=== PATIENT | male | born 1930 | race Two or more races ===

== ENCOUNTER 2018-05-14 21:33 | Inpatient (IN) | payer MEDICARE, OTHER ==
[~2018-05-14] VITALS: Ht 165.1 cm; Wt 48.6 kg
[2018-05-14 22:37] LABS: Hematocrit 30.8 % (41.0-53.0); Mean Corpuscular Hgb Conc. 32.3 g/dL (32.0-36.0); Mean Corpuscular Volume 83.7 fL (80.0-100.0); Platelet Count (auto) 307 10^3/uL (140-450); Red Blood Cells 3.68 10^6/uL (4.5-5.90); Red Cell Distribution Width 16.1 % (11.8-14.3)
[2018-05-14 22:46] LABS: White Blood Cell 31.9 10^3/uL (4.4-10.8)
[2018-05-14 22:48] LABS: Band Neutrophils % (manual) 0; Basophils % (manual) 0 (0.0-2.0); Blast Cells 0; Eosinophils % (manual) 0 (0-7); Metamyelocytes % 0; Myelocytes % 0; Promyelocytes % 0; Reactive Lymphocytes 0
[2018-05-14 22:50] LABS: Albumin 2.9 g/dL (3.4-5.0); Calcium 8.2 mg/dL (8.5-10.1); Magnesium 2.5 mg/dL (1.6-2.6); Potassium 4.6 mmol/L (3.5-5.1)
[2018-05-14 22:53] LABS: Lymphocytes % (manual) 4 (10.0-50.0); Monocytes % (manual) 4 (0-12)
[2018-05-14 22:56] LABS: Bilirubin, Total 0.4 mg/dL (0.2-1.0); Total Protein 8.3 g/dL (6.4-8.2)
[2018-05-14] MEDS ORDERED: LEVOFLOXACIN 500MG 100 ML IV ONE (23:00)
[2018-05-14] MEDS ORDERED: cefTRIAXone 1GM/10ml IVPUSH 10 ML IV ONE (23:00)
[2018-05-14] MEDS ORDERED: SODIUM CHLORIDE 0.9% 1,500 ML IV ONE (23:00)
[2018-05-14 23:16] LABS: INR 1.09 (0.9-1.15); Partial Thromboplastin Time 32.9 sec (23.78-33.04); Prothrombin Time 11.6 sec (9.27-12.13)
[2018-05-14 23:32] LABS: Urine Bacteria MANY /hpf (None Seen); Urine Blood 3+ /uL (Negative); Urine Specific Gravity 1.017 (1.001-1.035); Urine WBC 1026 /hpf (0 - 3); Urine WBC Clumps PRESENT /hpf (None Seen)
[2018-05-15] MEDS ORDERED: TAMS0.4C36 PO (03:01)
[2018-05-15] MEDS ORDERED: AMLO5TAB13 PO (03:01)
[2018-05-15] MEDS ORDERED: LEVEMIR SC (03:01)
[2018-05-15] MEDS ORDERED: LOSA25TA40 PO (03:01)
[2018-05-15] MEDS: SODIUM CHLORIDE 0.9% 1,000 ML IV SCH ×2 (03:45→15:08)
[2018-05-15] MEDS ORDERED: MORPHINE SULFATE 4 MG/ML SYR/VIAL IV PRN (03:45)
[2018-05-15] MEDS ORDERED: ONDANSETRON HCL 4 MG/2 ML VIAL IV PRN (03:45)
[2018-05-15] MEDS ORDERED: TEMAZEPAM 15 MG CAP PO PRN (03:45)
[2018-05-15] MEDS ORDERED: ACETAMINOPHEN 325 MG TAB PO PRN (03:45)
[2018-05-15] MEDS ORDERED: SODIUM CHLORIDE 0.9% 500 ML IV ONE (03:45)
[2018-05-15] MEDS ORDERED: NITROGLYCERIN 0.4 MG SL TAB SL PRN (03:45)
[2018-05-15] MEDS ORDERED: DEXTROSE (50%) 50ML SYRG IV PRN (05:15)
[2018-05-15 05:30] VITALS: BP 124/65
[2018-05-15] MEDS: InsuLIN REG 1unit/0.01ml Soln (100units/ml) SC SCH ×3 (06:00→17:52)
[2018-05-15] MEDS: ACCU-CHEK COMFORT CURVE STRIP VI SCH ×3 (06:00→17:52)
[2018-05-15 09:00] VITALS: BP 103/51
[2018-05-15] MEDS: PANTOPRAZOLE 40 MG TAB PO SCH (10:06)
[2018-05-15] MEDS: amLODIPine BESYLATE 5 MG TAB PO SCH (10:07)
[2018-05-15] MEDS: LOSARTAN POTASSIUM 25 MG TAB PO SCH (10:07)
[2018-05-15 13:00] VITALS: BP 126/65
[2018-05-15 17:00] VITALS: BP 108/65
[2018-05-15] MEDS: TAMSULOSIN HYDROCHLORIDE 0.4 MG CAP PO SCH (17:53)
[2018-05-15] MEDS ORDERED: INFLUENZA QUAD 2018-2019 0.5 ML SYRG IM ONE (19:00)
[2018-05-15] MEDS ORDERED: PNEUMOCOCCAL VACC POLYS 25 MCG/0.5 ML VIAL IM ONE (19:00)
[2018-05-15 20:00] VITALS: BP 122/67
[2018-05-15 21:08] VITALS: BP 122/67
[2018-05-15] MEDS: LEVOFLOXACIN 250MG 50 ML IV SCH (22:14)
[2018-05-16] MEDS: SODIUM CHLORIDE 0.9% 1,000 ML IV SCH ×2 (01:59→11:08)
[2018-05-16 05:12] VITALS: BP 117/62
[2018-05-16] MEDS: ACCU-CHEK COMFORT CURVE STRIP VI SCH ×4 (06:00→17:48)
[2018-05-16] MEDS: InsuLIN REG 1unit/0.01ml Soln (100units/ml) SC SCH ×4 (06:00→17:48)
[2018-05-16 06:39] LABS: Basophils # (auto) 0 uL; Hemoglobin 8.4 g/dL (13.5-17.5); Mean Corpuscular Hemoglobin 28.3 pg (28.0-32.0); Red Blood Cells 2.96 10^6/uL (4.5-5.90)
[2018-05-16 06:43] LABS: Eosinophils # (auto) 0 uL; Hematocrit 24.8 % (41.0-53.0); Lymphocytes # (auto) 4.4 uL; Mean Corpuscular Hgb Conc. 33.8 g/dL (32.0-36.0); Mean Corpuscular Volume 83.7 fL (80.0-100.0); Monocytes # (auto) 1.6 uL; Neutrophils # (auto) 4.9 uL; Platelet Count (auto) 176 10^3/uL (140-450); Red Cell Distribution Width 16.7 % (11.8-14.3)
[2018-05-16 06:51] LABS: Potassium 4.1 mmol/L (3.5-5.1)
[2018-05-16 06:59] LABS: BUN/Creatinine Ratio 24.6; Bilirubin, Total 0.3 mg/dL (0.2-1.0); Calcium 7.8 mg/dL (8.5-10.1); Total Protein 6.3 g/dL (6.4-8.2)
[2018-05-16 09:09] VITALS: BP 113/57
[2018-05-16] MEDS: LOSARTAN POTASSIUM 25 MG TAB PO SCH (11:07)
[2018-05-16] MEDS: PANTOPRAZOLE 40 MG TAB PO SCH (11:07)
[2018-05-16] MEDS: amLODIPine BESYLATE 5 MG TAB PO SCH (11:08)
[2018-05-16 13:00] VITALS: BP 130/64
[2018-05-16 16:37] VITALS: BP 117/70
[2018-05-16] MEDS: Pro-Stat SF 30ml Vanilla PO SCH (17:48)
[2018-05-16] MEDS: TAMSULOSIN HYDROCHLORIDE 0.4 MG CAP PO SCH (17:59)
[2018-05-16] MEDS: GLYTROL 1,000 ML BTL PO SCH (18:00)
[2018-05-16 22:00] VITALS: BP 128/71
[2018-05-16] MEDS: ASCORBIC ACID 500 MG TAB PO SCH (22:28)
[2018-05-16] MEDS: LEVOFLOXACIN 250MG 50 ML IV SCH (22:28)
[2018-05-16] MEDS ORDERED: VANCOMYCIN PER PHARMACY 0 MG IV SCH (23:00)
[2018-05-17] MEDS ORDERED: VANCOMYCIN 1GM/250ML 250 ML IV ONE
[2018-05-17] MEDS: InsuLIN REG 1unit/0.01ml Soln (100units/ml) SC SCH ×4 (00:14→21:18)
[2018-05-17] MEDS: ACCU-CHEK COMFORT CURVE STRIP VI SCH ×4 (00:14→21:18)
[2018-05-17] MEDS: SODIUM CHLORIDE 0.9% 1,000 ML IV SCH ×3 (00:19→21:28)
[2018-05-17 05:00] VITALS: BP 110/61
[2018-05-17 07:50] LABS: Basophils # (auto) 0 uL; Eosinophils # (auto) 0.2 uL; Eosinophils % (auto) 2.4 % (0.0-7.0); Monocytes # (auto) 0.5 uL; Red Cell Distribution Width 16.5 % (11.8-14.3)
[2018-05-17] MEDS: HYDROcodone-ACET 5/325MG TAB PO PRN ×2 (07:50→12:20)
[2018-05-17 07:53] LABS: Basophils % (auto) 0.3 % (0.0-2.0); Hematocrit 24.8 % (41.0-53.0); Hemoglobin 8.3 g/dL (13.5-17.5); Lymphocytes # (auto) 1.1 uL; Lymphocytes % (auto) 13.2 % (10.0-50.0); Mean Corpuscular Hemoglobin 27.8 pg (28.0-32.0); Mean Corpuscular Hgb Conc. 33.7 g/dL (32.0-36.0); Mean Corpuscular Volume 82.6 fL (80.0-100.0); Monocytes % (auto) 5.6 % (0.0-12.0); Neutrophils # (auto) 6.4 uL; Neutrophils % (auto) 78.5 % (37.0-80.0); Nucleated Red Blood Cells % 0.1 %; Platelet Count (auto) 193 10^3/uL (140-450); White Blood Cell 8.2 10^3/uL (4.4-10.8)
[2018-05-17] MEDS: HYDROmorphone HCL 2 MG/ML VL IV PRN ×5 (08:00→18:45)
[2018-05-17] MEDS: Pro-Stat SF 30ml Vanilla PO SCH ×2 (08:00→21:18)
[2018-05-17 08:09] LABS: Calcium 7.8 mg/dL (8.5-10.1); Potassium 4.2 mmol/L (3.5-5.1)
[2018-05-17 08:11] LABS: BUN/Creatinine Ratio 17.5; Bilirubin, Total 0.3 mg/dL (0.2-1.0); Total Protein 6.3 g/dL (6.4-8.2)
[2018-05-17 09:00] VITALS: BP 117/68
[2018-05-17] MEDS: LOSARTAN POTASSIUM 25 MG TAB PO SCH (09:32)
[2018-05-17] MEDS: MULTIPLE VITAMINS W/ MINERALS TAB PO SCH (09:32)
[2018-05-17] MEDS: amLODIPine BESYLATE 5 MG TAB PO SCH (09:32)
[2018-05-17] MEDS: ASCORBIC ACID 500 MG TAB PO SCH ×2 (09:32→21:27)
[2018-05-17] MEDS: PANTOPRAZOLE 40 MG TAB PO SCH (09:32)
[2018-05-17 13:00] VITALS: BP 123/71
[2018-05-17 17:00] VITALS: BP 135/69
[2018-05-17] MEDS: GLYTROL 1,000 ML BTL PO SCH (21:18)
[2018-05-17] MEDS: TAMSULOSIN HYDROCHLORIDE 0.4 MG CAP PO SCH (21:18)
[2018-05-17] MEDS: LEVOFLOXACIN 250MG 50 ML IV SCH (21:27)
[2018-05-17 22:00] VITALS: BP 138/91
[2018-05-18] MEDS: ACCU-CHEK COMFORT CURVE STRIP VI SCH ×3 (00:32→12:00)
[2018-05-18] MEDS ORDERED: VANCOMYCIN 750 MG in D5W 5% 250 ML IV SCH (01:00)
[2018-05-18 05:00] VITALS: BP 114/62
[2018-05-18] MEDS: InsuLIN REG 1unit/0.01ml Soln (100units/ml) SC SCH ×3 (06:00→12:00)
[2018-05-18 07:08] LABS: Basophils # (auto) 0.1 uL; Basophils % (auto) 0.7 % (0.0-2.0); Eosinophils # (auto) 0.3 uL; Eosinophils % (auto) 3.7 % (0.0-7.0); Hematocrit 26.7 % (41.0-53.0); Hemoglobin 8.9 g/dL (13.5-17.5); Lymphocytes # (auto) 1.7 uL; Lymphocytes % (auto) 22.8 % (10.0-50.0); Mean Corpuscular Hemoglobin 27.5 pg (28.0-32.0); Mean Corpuscular Hgb Conc. 33.4 g/dL (32.0-36.0); Mean Corpuscular Volume 82.5 fL (80.0-100.0); Monocytes # (auto) 0.5 uL; Monocytes % (auto) 6.5 % (0.0-12.0); Neutrophils % (auto) 66.3 % (37.0-80.0); Platelet Count (auto) 208 10^3/uL (140-450); Red Blood Cells 3.24 10^6/uL (4.5-5.90); Red Cell Distribution Width 16.5 % (11.8-14.3); White Blood Cell 7.5 10^3/uL (4.4-10.8)
[2018-05-18] MEDS: HYDROmorphone HCL 2 MG/ML VL IV PRN ×3 (07:10→12:52)
[2018-05-18 07:32] LABS: Potassium 3.9 mmol/L (3.5-5.1)
[2018-05-18 07:40] LABS: Albumin 2.2 g/dL (3.4-5.0); BUN/Creatinine Ratio 18.1; Bilirubin, Total 0.3 mg/dL (0.2-1.0); Calcium 8.2 mg/dL (8.5-10.1); Total Protein 6.9 g/dL (6.4-8.2)
[2018-05-18] MEDS: GLYTROL 1,000 ML BTL PO SCH (08:00)
[2018-05-18] MEDS: Pro-Stat SF 30ml Vanilla PO SCH (08:00)
[2018-05-18 09:00] VITALS: BP 104/61
[2018-05-18] MEDS: SODIUM CHLORIDE 0.9% 1,000 ML IV SCH (09:34)
[2018-05-18] MEDS: ASCORBIC ACID 500 MG TAB PO SCH (09:51)
[2018-05-18] MEDS: MULTIPLE VITAMINS W/ MINERALS TAB PO SCH (09:51)
[2018-05-18] MEDS: amLODIPine BESYLATE 5 MG TAB PO SCH (09:52)
[2018-05-18] MEDS: PANTOPRAZOLE 40 MG TAB PO SCH (09:52)
[2018-05-18] MEDS: LOSARTAN POTASSIUM 25 MG TAB PO SCH (10:00)
[2018-05-18] MEDS ORDERED: Glucerna Carbsteady SHAKE Stawberry 8oz PO SCH (12:00)
[2018-05-18 12:33] VITALS: BP 104/61
== END 2018-05-18 13:00 | DRG 871 ==
LOC: ER 21:45 → TELE 21:46 → TELE-EAST 05-15 05:05
PROVIDERS: ADMIT Nurse Practitioner; ATTEND Family Medicine
DX: A41.9 Sepsis, unspecified organism (principal); G93.41 Metabolic encephalopathy; N17.9 Acute kidney failure, unspecified; N13.6 Pyonephrosis; N18.3 Chronic kidney disease, stage 3 (moderate); I12.9 Hypertensive chronic kidney disease with stage 1 through stage 4 chronic kidney disease, or unspecified chronic kidney disease; E11.22 Type 2 diabetes mellitus with diabetic chronic kidney disease; B96.20 Unspecified Escherichia coli [E. coli] as the cause of diseases classified elsewhere; E86.0 Dehydration; F02.80 Dementia in other diseases classified elsewhere, unspecified severity, without behavioral disturbance, psychotic disturbance, mood disturbance, and anxiety; N40.0 Benign prostatic hyperplasia without lower urinary tract symptoms; Z23 Encounter for immunization
CPT/HCPCS: 36415; 51702; 70450; 71045; 74176; 78582; 80053; 81001; 82962; 83605; 83735; 84484; 85007; 85025; 85027; 85379; 85610; 85730; 87040; 87076; 87086; 87088; 87186; 90674; 93005; 93970; 96365; 96375; J0696; J1815; J1956; J7060

== ENCOUNTER 2018-10-12 13:03 | Inpatient (IN) | payer MEDICARE, OTHER ==
[~2018-10-12] VITALS: Ht 160 cm; Wt 55.2 kg
[~2018-10-12 13:03] MED LIST: AMLO5TAB13 PO; LEVEMIR SC; LOSA25TA40 PO; TAMS0.4C36 PO
[2018-10-12] MEDS ORDERED: PANTOPRAZOLE 40 MG/10 ML VIAL IV STA (14:38)
[2018-10-12] MEDS ORDERED: BENZOCAINE (DENTAL) 20 % SPRAY 60ML MT ONE (14:52)
[2018-10-12 15:15] LABS: INR 1.07 (0.9-1.15); Partial Thromboplastin Time 32.8 sec (23.78-33.04); Prothrombin Time 11.4 sec (9.27-12.13)
[2018-10-12 15:17] LABS: Magnesium 2.6 mg/dL (1.6-2.6)
[2018-10-12 15:18] LABS: Albumin 2.7 g/dL (3.4-5.0); Calcium 8.8 mg/dL (8.5-10.1)
[2018-10-12 15:19] LABS: Lactic Acid w/Reflex 5.9 mmol/L (0.4-2.0)
[2018-10-12 15:21] LABS: Bilirubin, Total 0.4 mg/dL (0.2-1.0); Total Protein 7.6 g/dL (6.4-8.2)
[2018-10-12 15:39] LABS: Hematocrit 27.2 % (41.0-53.0); Hemoglobin 8.8 g/dL (13.5-17.5); Mean Corpuscular Hemoglobin 28.3 pg (28.0-32.0); Mean Corpuscular Hgb Conc. 32.6 g/dL (32.0-36.0); Mean Corpuscular Volume 87.1 fL (80.0-100.0); Platelet Count (auto) 400 10^3/uL (140-450); Red Blood Cells 3.12 10^6/uL (4.5-5.90); Red Cell Distribution Width 17.7 % (11.8-14.3); White Blood Cell 25.2 10^3/uL (4.4-10.8)
[2018-10-12 15:46] LABS: Amylase 248 U/L (25-115); Lipase 135 U/L (73-393)
[2018-10-12 15:53] LABS: Basophils % (manual) 0 (0.0-2.0); Blast Cells 0; Eosinophils % (manual) 0 (0-7); Metamyelocytes % 0; Myelocytes % 0; Promyelocytes % 0; Reactive Lymphocytes 0
[2018-10-12] MEDS ORDERED: PANTOPRAZOLE 80 MG in SODIUM CHL 0.9% 60 ML IV ONE (16:15)
[2018-10-12] MEDS ORDERED: cefTRIAXone 1GM/50ML D5W 50 ML IV ONE (16:15)
[2018-10-12] MEDS ORDERED: SODIUM CHLORIDE 0.9% 1,500 ML IV ONE (16:15)
[2018-10-12 17:05] LABS: Urine Amorphous Crystal MOD /hpf (None Seen); Urine Bacteria MANY /hpf (None Seen); Urine Mucus FEW (None Seen); Urine WBC 202 /hpf (0 - 3)
[2018-10-12 17:15] LABS: Urine Specific Gravity 1.005 (1.001-1.035)
[2018-10-12 17:16] LABS: Urine Blood 2+ /uL (Negative)
[2018-10-12 18:07] LABS: Band Neutrophils % (manual) 9; Lymphocytes % (manual) 2 (10.0-50.0); Monocytes % (manual) 7 (0-12)
[2018-10-12] MEDS ORDERED: MORPHINE SULF INJ 2 MG/ML SYRINGE 1ML IV PRN ×2 (18:30)
[2018-10-12] MEDS ORDERED: SODIUM CHLORIDE 0.9% 500 ML IV ONE (18:30)
[2018-10-12] MEDS ORDERED: NITROGLYCERIN 0.4 MG SL TAB SL PRN (18:30)
[2018-10-12] MEDS ORDERED: SODIUM CHLORIDE 0.9% 1,000 ML IV ONE (18:30)
[2018-10-12] MEDS ORDERED: ONDANSETRON HCL 4 MG/2 ML VIAL IV PRN (18:30)
[2018-10-12] MEDS ORDERED: DEXTROSE (50%) 50ML SYRG IV PRN (18:30)
[2018-10-12] MEDS ORDERED: VANCOMYCIN PER PHARMACY 0 MG IV SCH (18:30)
[2018-10-12] MEDS ORDERED: HYDROcodone-ACET 5/325MG TAB PO PRN (18:30)
[2018-10-12] MEDS ORDERED: SODIUM CHLORIDE 0.9% 1,000 ML IV SCH (18:30)
[2018-10-12] MEDS ORDERED: ACETAMINOPHEN 500 MG TAB PO PRN (18:30)
[2018-10-12] MEDS ORDERED: SODIUM BICARBONATE 8.4 % INJ 50ML VIAL IV ONE (18:45)
[2018-10-12] MEDS: AZITHROMYCIN 500MG/ 250ML 250 ML IV SCH (18:47)
[2018-10-12] MEDS ORDERED: SODIUM BICARBONATE 8.4% INJ 50ML SYRINGE ONE (19:03)
[2018-10-12 19:06] VITALS: BP 113/58
--- NOTE | 2018-10-12 19:55 | NUR ---
Admit to [facility] admitted to [facility] via gurney on youth nutritional monitor, and portable 02. Patient transferred to bed, connected to unit monitoring and oxygen, and weighed by bed scale. Patient oriented to Princess cortes RN, unit, room, bed, and unit policies regarding patient care and visiting hours. All questions and concerns addressed, patient verbalized understanding. NOTE: PATIENT IS AWAKE, ALERT AND ORIENTED X2. PERIODS OF CONFUSION. NO SOB, DISTRESS OR PAIN NOTED. ON 2L N/C. LAST EPISODE OF VOMITING WAS YESTERDAY.. ST [address] LBM: TODAY. NO OPEN WOUND. CALL LIGHT LEFT WITHIN REACH.
[2018-10-12 20:00] VITALS: BP 113/90
[2018-10-12 20:16] LABS: Albumin 2.3 g/dL (3.4-5.0); Calcium 7.7 mg/dL (8.5-10.1); Potassium 3.9 mmol/L (3.5-5.1)
[2018-10-12 20:19] LABS: BUN/Creatinine Ratio 40.3; Bilirubin, Total 0.3 mg/dL (0.2-1.0); Total Protein 6.5 g/dL (6.4-8.2)
--- NOTE | 2018-10-12 21:00 | NUR ---
HYGIENE CARE FULL BED BATH PERFORMED. ORAL CARE DONE. GOWN CHANGED, ALL LINENS CHANGED. PATIENT TOLERATED IT WELL.
[2018-10-12] MEDS: SODIUM BICARBONATE 50ML VIAL 50 ML in SOD CHL 0.45% 1,000 ML IV SCH (21:15)
[2018-10-12] MEDS: PANTOPRAZOLE 40 MG/10 ML VIAL IV SCH (21:15)
--- NOTE | 2018-10-12 21:30 | NUR ---
IV insertion IV access obtained, via clean sterile technique by inserting [22] gauge catheter at [LEFT FOREARM] after [1] attempt(s). IV secured properly. No trauma to site. Patient tolerated well.
[2018-10-12 22:00] VITALS: BP 113/90
[2018-10-12] MEDS: ACCU-CHEK COMFORT CURVE STRIP VI SCH (22:41)
[2018-10-12] MEDS: VANCOMYCIN 750 MG in D5W 5% 250 ML IV SCH (22:41)
[2018-10-12] MEDS: InsuLIN REG 1unit/0.01ml Soln (100units/ml) SC SCH (23:03)
[2018-10-13] VITALS (11 sets, daily range): BP systolic 96–122; BP diastolic 47–68
[2018-10-13] MEDS: InsuLIN REG 1unit/0.01ml Soln (100units/ml) SC SCH ×4 (04:24→23:35)
[2018-10-13] MEDS: ACCU-CHEK COMFORT CURVE STRIP VI SCH ×4 (04:24→23:35)
[2018-10-13] MEDS: SODIUM BICARBONATE 50ML VIAL 50 ML in SOD CHL 0.45% 1,000 ML IV SCH ×3 (05:07→18:23)
[2018-10-13 05:12] LABS: Basophils # (auto) 0 uL; Eosinophils # (auto) 0 uL; Eosinophils % (auto) 0.1 % (0.0-7.0); Hemoglobin 7.2 g/dL (13.5-17.5); Lymphocytes # (auto) 2.1 uL; Monocytes # (auto) 0.7 uL; Monocytes % (auto) 3.8 % (0.0-12.0); Neutrophils # (auto) 15.3 uL; White Blood Cell 18.2 10^3/uL (4.4-10.8)
[2018-10-13 05:15] LABS: Basophils % (auto) 0.2 % (0.0-2.0); Hematocrit 20.7 % (41.0-53.0); Lymphocytes % (auto) 11.7 % (10.0-50.0); Mean Corpuscular Hemoglobin 29.2 pg (28.0-32.0); Mean Corpuscular Hgb Conc. 34.8 g/dL (32.0-36.0); Neutrophils % (auto) 84.2 % (37.0-80.0); Platelet Count (auto) 256 10^3/uL (140-450); Red Blood Cells 2.47 10^6/uL (4.5-5.90); Red Cell Distribution Width 17.1 % (11.8-14.3)
--- NOTE | 2018-10-13 05:55 | NUR ---
ROUNDS PATIENT QUIETLY LAYING IN BED SLEEPING. NO SOB, DISTRESS OR PAIN NOTED. VS STABLE. WILL CONTINUE TO MONITOR.
[2018-10-13] MEDS: IPRATROPIUM BROM 0.5 MG/2.5ML INH SOL NEB SCH ×4 (06:30→18:10)
[2018-10-13] MEDS: ALBUTEROL SULF 2.5 MG/0.5ML(0.5%) NEB SOLN NEB SCH ×4 (06:30→18:10)
--- NOTE | 2018-10-13 07:20 | NUR ---
END OF SHIFT PATIENT IS LAYING IN BED AWAKE. NO SOB, DISTRESS OR PAIN NOTED. ON 2L N/C. NPO STATUS. NO VOMITING NOTED. NS WITH BICARB AT 125ML/H. WILL GIVE REPORT AND ENDORSE CARE TO THE DAY SHIFT RN.
--- NOTE | 2018-10-13 07:45 | NUR ---
Opening Shift Note Assumed care of patient. Patient resting at this time. Easily arousable. Patient A&O x2 knows name and only. Patient on 2L NC. IV Right FA 18G and patent and intact saline lock. IV Left FA 22G running .45NS with bicarb at 125ml/hr. Humphries to gravity cloudy yellow sediment noted in bag. Bed in the lowest position, side rails up x2, call light with in reach. No S/S of distress/SOB or pain. Instructed on POC and to call for assist PRN, will continue to monitor for changes Q1hr and PRN.
--- NOTE | 2018-10-13 08:50 | NUR ---
Spoke with Rita wound care nurse about reddened excoriated scrotum. Rita states no wound consult needed just place z-guard and antifungal cream on reddened area.
--- NOTE | 2018-10-13 09:05 | NUR ---
Dr. Pugh at bedside. Dr. Pugh wants 1 unit of PRBC, type and screen, and consents for EGD today
--- NOTE | 2018-10-13 09:30 | NUR ---
Patient IV right forearm 18G infiltrated. IV removed, catheter intact, pressure dressing placed. Will start another IV for blood.
--- NOTE | 2018-10-13 09:35 | NUR ---
Explained medications to patient regarding dosage, usages, and side effects. Medications to be given as ordered
--- NOTE | 2018-10-13 09:45 | NUR ---
Spoke with Daughter Charla she states that she lives out of state. Used pt phone in room to set up password with patient. Password is "Candace" Daughter Charla contact number is [phone] sample taker operator Christina (Niece) contact number is [phone].
[2018-10-13] MEDS: cefTRIAXone 1GM/50ML D5W 50 ML IV SCH (09:53)
[2018-10-13] MEDS: PANTOPRAZOLE 40 MG/10 ML VIAL IV SCH ×2 (09:53→21:47)
[2018-10-13] MEDS ORDERED: PANTOPRAZOLE 40 MG/10 ML VIAL IV SCH (10:00)
--- NOTE | 2018-10-13 10:00 | NUR ---
cognos lead Christina unable to come in to sign patient consents for EGD. Spoke with Dr. Alex about consents and that patient is confused. Dr. Alex signed patient consents for EGD.
--- NOTE | 2018-10-13 10:30 | NUR ---
Multiple attempts made to start another IV on patient by myself, Ml RN and Krupa RN with no success. Will call for midline placement for patient.
[2018-10-13] MEDS ORDERED: MIDAZOLAM HCL 5 MG/ML-1ML VIAL ONE (10:58)
[2018-10-13] MEDS ORDERED: LIDOCAINE VISCOUS 2% 15ML UD ONE (10:58)
[2018-10-13] MEDS ORDERED: fentaNYL CITRATE 100 MCG/2 ML VL ONE (10:58)
[2018-10-13] MEDS ORDERED: SODIUM CHLORIDE LOCK 10 ML ONE (10:58)
[2018-10-13] MEDS ORDERED: diphenhdrAMINE HCL 50 MG/1 ML VL ONE (10:59)
--- NOTE | 2018-10-13 11:00 | NUR ---
Dr. Albarran at bedside seeing patient. Dr. Albarran also signed consents for blood and EGD.
--- NOTE | 2018-10-13 11:10 | NUR ---
Blood started on patient. Vital signs WNL no signs of distress at this time.
--- NOTE | 2018-10-13 11:25 | NUR ---
Patient tolerating blood no S/S of distress noted. Vital signs within normal limits.
--- NOTE | 2018-10-13 11:45 | NUR ---
PICC line nurse Shilpa at bedside placing patient Midline.
--- NOTE | 2018-10-13 12:32 | NUR ---
Midline Placement: Patient educated on need for midline placement. All risks and benefits explained and all questions and concerns addresses prior to procedure. 18g/10cm midline inserted via right basilic vein using Ultrasound. Sterile technique utilized. Blood return obtained from the lumen and flushed easily with NS using proper technique. Midline secured with saline lock; biodisc and occlusive dressing applied. Primary RN notified. Midline lot # [id number]. Placed by Kennedi Gray RN with minimal assistance by this RN.
--- NOTE | 2018-10-13 12:45 | NUR ---
Patient take down to pre-op on O2 on 2L NC and on payable manager, by Kayleen OROZCO.
--- NOTE | 2018-10-13 12:50 | NUR ---
Dr. Byrne came to see patient told Dr. Byrne that patient is down in Pre-op. Dr. Byrne stated he will come back to see him tomorrow.
--- NOTE | 2018-10-13 13:30 | NUR ---
Patient back in room from EGD procedure. Patient resting at this time. Patient easily arousable vital signs WNL.
[2018-10-13] MEDS: AZITHROMYCIN 500MG/ 250ML 250 ML IV SCH (14:07)
--- NOTE | 2018-10-13 14:40 | NUR ---
Patient appears to be sleeping. Will continue to monitor.
--- NOTE | 2018-10-13 15:15 | NUR ---
Dr. Albarran at bedside. No new orders at this time. Will continue to monitor.
--- NOTE | 2018-10-13 16:15 | NUR ---
Patient appears to sleeping at this time. Vital signs WNL. Will continue to monitor.
--- NOTE | 2018-10-13 18:54 | NUR ---
Patient resting at this time. Patient ate 100% of dinner. Patient A&O x2 knows name and only. Patient on 2L NC. IV Right upper arm midline running .45NS with bicarb at 125ml/hr. and patent and intact saline lock. IV Left FA 22G running NS TKO. Humphries to gravity cloudy yellow sediment noted in bag. Bed in the lowest position, side rails up x2, call light with in reach. No S/S of distress/SOB or pain. Instructed on POC and to call for assist PRN, will continue to monitor for changes. Report to be given to next shift.
--- NOTE | 2018-10-13 19:30 | NUR ---
Opening Shift Note Assumed care of patient, awake and alert and oriented x2, is able to state his name and , knows he is in the hospital but unsure of location. Patient is unable to state year or reason for hospital visit. Reoriented patient and updated on POC. No S/S of distress/SOB or pain. Patient able to turn self in bed with minimum assistance. Noted to have maceration and swelling to scrotum and blanchable redness to sacrum and coccyx. Z-guard barrier cream and preventative optifoam placed. Partial bed linen change done and partial bath given. New gown placed on patient. Repositioned for comfort.Instructed to call for assist PRN, will continue to monitor for changes Q1hr and PRN.
[2018-10-14] VITALS (9 sets, daily range): BP systolic 91–111; BP diastolic 41–54
[2018-10-14] MEDS: SODIUM BICARBONATE 50ML VIAL 50 ML in SOD CHL 0.45% 1,000 ML IV SCH (01:50)
--- NOTE | 2018-10-14 04:25 | NUR ---
AM CARE ORAL CARE PROVIDED . PATIENT TOLERATED WELL. PARTIAL BED BATH AND BED LINEN CHANGE DONE. PATIENT REPOSITIONED FOR COMFORT. CONTINUE CARE.
[2018-10-14] MEDS: InsuLIN REG 1unit/0.01ml Soln (100units/ml) SC SCH (06:00)
[2018-10-14 06:04] LABS: Basophils # (auto) 0 uL; Basophils % (auto) 0.2 % (0.0-2.0); Eosinophils # (auto) 0.3 uL; Eosinophils % (auto) 2.7 % (0.0-7.0); Hematocrit 21.2 % (41.0-53.0); Hemoglobin 7.6 g/dL (13.5-17.5); Lymphocytes # (auto) 1.7 uL; Mean Corpuscular Hemoglobin 30.1 pg (28.0-32.0); Mean Corpuscular Hgb Conc. 35.8 g/dL (32.0-36.0); Mean Corpuscular Volume 84.2 fL (80.0-100.0); Monocytes # (auto) 0.5 uL; Monocytes % (auto) 5.8 % (0.0-12.0); Neutrophils % (auto) 73.3 % (37.0-80.0); Platelet Count (auto) 212 10^3/uL (140-450); Red Blood Cells 2.52 10^6/uL (4.5-5.90); Red Cell Distribution Width 17.5 % (11.8-14.3); White Blood Cell 9.5 10^3/uL (4.4-10.8)
--- NOTE | 2018-10-14 06:10 | NUR ---
LOW BLOOD SUGAR OF 58 SECOND CHECK 59 PATIENT GIVEN TWO CRANBERRY JUICE BOXES WILL CONTINUE TO MONITOR
[2018-10-14] MEDS: ACCU-CHEK COMFORT CURVE STRIP VI SCH ×3 (06:11→17:38)
[2018-10-14 06:18] LABS: Calcium 7.2 mg/dL (8.5-10.1)
[2018-10-14 06:28] LABS: Potassium 2.3 mmol/L (3.5-5.1)
[2018-10-14] MEDS: ALBUTEROL SULF 2.5 MG/0.5ML(0.5%) NEB SOLN NEB SCH ×4 (06:29→19:13)
[2018-10-14] MEDS: IPRATROPIUM BROM 0.5 MG/2.5ML INH SOL NEB SCH ×4 (06:29→19:13)
--- NOTE | 2018-10-14 07:02 | NUR ---
HOSPITALIST PAGED DT LOW POTASSIUM
[2018-10-14] MEDS ORDERED: POTASSIUM CHL 20 Meq TABLET PO ONE (07:15)
--- NOTE | 2018-10-14 07:30 | NUR ---
Opening Shift Note Assumed care of patient, awake, passive, very limited verbal response, follows commands. No S/S of distress/SOB or pain. See interventions for complete physical assessment. Bed locked on low position, side rails up x2, bed alarms on at all times, call hilario within reach, instructed on POC and to call for assist PRN, will continue to monitor for changes Q1hr and PRN.
--- NOTE | 2018-10-14 07:34 | NUR ---
CARE ENDORSED TO DAY SHIFT RN LAST BLOOD SUGAR CHECK 70 DAY SHIFT RN AWARE POTASSIUM TELEPHONE ORDERS READ BACK AND VERIFIED FOR POTASSIUM REPLACEMENT
[2018-10-14] MEDS ORDERED: POTASSIUM EFFERVESENT TAB 25 MEQ PO SCH (07:45)
[2018-10-14] MEDS: PANTOPRAZOLE 40 MG/10 ML VIAL IV SCH ×2 (09:31→23:17)
[2018-10-14] MEDS: cefTRIAXone 1GM/50ML D5W 50 ML IV SCH (09:31)
[2018-10-14] MEDS: AZITHROMYCIN 500MG/ 250ML 250 ML IV SCH (09:31)
--- NOTE | 2018-10-14 10:11 | NUR ---
Dr Albarran at bedside to assess patient. Updated on patient's status. Will carry out new orders.
[2018-10-14] MEDS: SODIUM CHLORIDE 0.9% 1,000 ML IV SCH (11:39)
[2018-10-14 11:53] LABS: Hematocrit 20.9 % (41.0-53.0); Hemoglobin 7.3 g/dL (13.5-17.5)
[2018-10-14 13:07] LABS: Magnesium 2.2 mg/dL (1.6-2.6); Phosphorus 2.3 mg/dL (2.5-4.90)
--- NOTE | 2018-10-14 13:30 | NUR ---
Pt is an alert but confused male that was residing with his niece prior to admission. Pt has a daughter in [place] that is supportive and involved. Pt has a w/c, fww and was on service with [facility] prior to admission. Per Niece, herself and daughter were considering hospice before hospitalization. Niece agreed to continue hospice plan with [facility] and states the pt will return home with her. [facility] notified. Will continue to monitor and provide intervention as appropriate. Addendum: 10/14/18 at 1339 by FREDI HOLLY Amended: Links added.
--- NOTE | 2018-10-14 13:42 | NUR ---
Negra Murray from [facility] at bedside, per Negra patient is already signed up with them. They're ready to take him back on discharge. Telephone number [phone].
[2018-10-14] MEDS: VANCOMYCIN 750 MG in D5W 5% 250 ML IV SCH (19:10)
[2018-10-15] VITALS (8 sets, daily range): BP systolic 102–119; BP diastolic 50–92
[2018-10-15] MEDS: IPRATROPIUM BROM 0.5 MG/2.5ML INH SOL NEB SCH ×5 (00:38→21:55)
[2018-10-15] MEDS: ALBUTEROL SULF 2.5 MG/0.5ML(0.5%) NEB SOLN NEB SCH ×5 (00:38→21:56)
[2018-10-15 05:38] LABS: Basophils # (auto) 0 uL; Eosinophils # (auto) 0.4 uL; Eosinophils % (auto) 4.3 % (0.0-7.0); Hemoglobin 8.8 g/dL (13.5-17.5); Lymphocytes # (auto) 1.7 uL; Monocytes # (auto) 0.6 uL
[2018-10-15 05:40] LABS: Basophils % (auto) 0.2 % (0.0-2.0); Hematocrit 25.7 % (41.0-53.0); Lymphocytes % (auto) 17.7 % (10.0-50.0); Mean Corpuscular Hemoglobin 29.3 pg (28.0-32.0); Mean Corpuscular Hgb Conc. 34.2 g/dL (32.0-36.0); Mean Corpuscular Volume 85.8 fL (80.0-100.0); Monocytes % (auto) 6.3 % (0.0-12.0); Neutrophils # (auto) 6.9 uL; Neutrophils % (auto) 71.5 % (37.0-80.0); Platelet Count (auto) 187 10^3/uL (140-450); Red Cell Distribution Width 17.4 % (11.8-14.3); White Blood Cell 9.6 10^3/uL (4.4-10.8)
[2018-10-15 05:48] LABS: BUN/Creatinine Ratio 18.3; Calcium 7.4 mg/dL (8.5-10.1)
[2018-10-15] MEDS: ACCU-CHEK COMFORT CURVE STRIP VI SCH ×4 (06:00→17:18)
[2018-10-15 06:08] LABS: Potassium 2.9 mmol/L (3.5-5.1)
--- NOTE | 2018-10-15 06:10 | NUR ---
Hospitalist paged for critical K+ 2.9. Pt refused linen and bath this morning and wanted to wait till later so he could continue to sleep. Stable at this time. Will continue to monitor.
--- NOTE | 2018-10-15 06:32 | NUR ---
Gabapentin 600mg PO one time ordered, AM hospitalist to reconcile med rec. Pt stable at this time. Addendum: 10/15/18 at 0634 by Angela Lopez RN wrong patient
--- NOTE | 2018-10-15 06:34 | NUR ---
Potassium 40meq PO ordered for K+ 2.9. Pt stable at this time.
[2018-10-15] MEDS ORDERED: GABAPENTIN 300 MG CAP PO ONE (06:45)
[2018-10-15] MEDS ORDERED: POTASSIUM EFFERVESENT TAB 25 MEQ PO ONE (06:45)
--- NOTE | 2018-10-15 07:30 | NUR ---
Opening Shift Note Assumed care of patient, awake and oriented x2. No S/S of distress/SOB or pain. See interventions for complete assessment. Bed locked on loqw position side rails up x2, bed alarms on at all times, call hilario withn reach, instructed on POC and to call for assist PRN, will continue to monitor for changes Q1hr and PRN.
[2018-10-15] MEDS: SODIUM CHLORIDE 0.9% 1,000 ML IV SCH (07:56)
--- NOTE | 2018-10-15 08:25 | NUR ---
Received report awaiting patient
--- NOTE | 2018-10-15 08:56 | NUR ---
[facility] pt transferred to floor [facility] transferred to Tele floor via hospital bed on secured entrance monitor. All patient medications and personal belongings including a beige purse transferred with patient to receiving floor. Patient care transfered to Elisabeth OROZCO.
--- NOTE | 2018-10-15 09:01 | NUR ---
ARRIVAL PATIENT NOW CURRENTLY ON THE FLOOR, WILL F/U WITH MORNING ASSESSMENT PATIENT IS ALERT AND AWAKE, NO DISTRESS NOTED AT THIS TIME.
[2018-10-15] MEDS ORDERED: LEVO750T64 PO (09:58)
[2018-10-15] MEDS ORDERED: PANT40TA2 PO (09:59)
--- NOTE | 2018-10-15 10:00 | NUR ---
md faria notified me of discharge planning, and that home hospice was set up with [facility]. MD faria noted she will contact family/hospice to confirm all.
[2018-10-15] MEDS: cefTRIAXone 1GM/50ML D5W 50 ML IV SCH (10:07)
[2018-10-15] MEDS: AZITHROMYCIN 500MG/ 250ML 250 ML IV SCH (10:07)
[2018-10-15] MEDS: PANTOPRAZOLE 40 MG/10 ML VIAL IV SCH ×2 (10:07→21:14)
--- NOTE | 2018-10-15 11:51 | NUR ---
calling "HERMILA" calling the patients niece to talk about discharge planning. However Maddie answered noted she is Hermila's daughter (told Maddie about discharge planning as well), and that Hermila was out of town today. However she noted she will try to get in touch with her and have HERMILA call us back at the hospital.
--- NOTE | 2018-10-15 12:09 | NUR ---
[facility] Negra from [facility] calling She noted she spoke with same family member "Maddie" about the discharge. Maddie stated per Negra there will be someone at the home when the patient returns. [facility] has a sheepskin pickler time for the patient at 4 pm today, to be transferred to his home. The company is called [employer] that will be transferring the patient. If any contradictions; Negra will call me to let me know of possible cancel. D/t Christina (caregiver) out of town today. Awaiting Christina's/Maddie's call to confirm ok to discharge home
--- NOTE | 2018-10-15 16:03 | NUR ---
[facility] TALKED TO CORY WITH [facility] SHE NOTED SHE WILL HAVE TO SUSPEND PRECINCT POLICE CAPTAIN/TRANSPORT FOR THIS PATIENT AT THIS TIME D/T THERE IS NO FAMILY MEMBER AT THE HOME TO ACCEPT MEDICAL EQUIPMENT
--- NOTE | 2018-10-15 16:04 | NUR ---
CALLING FAMILY MEMBER HERMILA/JAMAICA LEFT A MESSAGE ON THEIR VOICEMAIL ABOUT THE CURRENT SITUATION. I LET THEM KNOW WE ARE A 24 HOUR SERVICE, THEY MAY CALL ANYTIME TO START THIS PROCESS. I AM TOLD BY THE [facility] THAT THE FAMILY MEMBERS WERE OUT OF TOWN TODAY, BUT WILL KEEP TRYING TO CONTACT FAMILY. THE COORDINATOR AT [facility] ALSO NOTED THIS TRANSFER CAN HAPPEN ANY TIME WELL.
--- NOTE | 2018-10-15 18:00 | NUR ---
Respiratory note: PT REFUSED SCHEDULED MED NEB TX AT THIS TIME STATING SHE DOES NOT NEED A TX. PT'S HR 83, RR16, S[O2 97% ON R/A, BS CLEAR/DIMINISHED. NO SIGNS OF ANY RESPIRATORY DISTRESS NOTED. ADVISED PT TO PLEASE CALL IF NEEDED.
--- NOTE | 2018-10-15 19:30 | NUR ---
Opening Shift Note Assumed care of patient, asleep with breathing even and unlabored. No S/S of distress/SOB or pain. Will continue to monitor for changes Q1hr and PRN. Side rails up x2. Bed locked in lowest position. Call light within reach.
[2018-10-16] MEDS: ACCU-CHEK COMFORT CURVE STRIP VI SCH ×3 (00:17→12:00)
--- NOTE | 2018-10-16 02:29 | NUR ---
Rounds Patient in bed asleep with no signs of distress/sob/pain. Will continue to monitor
[2018-10-16 03:23] VITALS: BP 112/66
[2018-10-16 05:42] VITALS: BP 120/65
[2018-10-16] MEDS: IPRATROPIUM BROM 0.5 MG/2.5ML INH SOL NEB SCH ×2 (06:16→11:35)
[2018-10-16] MEDS: ALBUTEROL SULF 2.5 MG/0.5ML(0.5%) NEB SOLN NEB SCH ×2 (06:16→11:35)
--- NOTE | 2018-10-16 07:27 | NUR ---
Endorsed care to day shift RN. Patient in bed asleep with breathing even and unlabored.
--- NOTE | 2018-10-16 07:40 | NUR ---
opening Patient asleep in bed, bed in lowest position, call light within reach. No distress noted at this time. Discharge paperwork is completed finished, awaiting call from either family (akua/mike) [phone] to confirm their presence at the home to receive medical equipment. Also will contact [facility] just in case if they've heard from the family as well. [phone] Will continue to monitor and follow up with morning assessment.
--- NOTE | 2018-10-16 09:13 | NUR ---
inna salcido from [place] noted she spoke with family about possible discharge home today, noted they will be there for the patient when he arrives. I have now a sweet pickle maker time for 1PM today from [place] to take my patient home.
--- NOTE | 2018-10-16 12:37 | NUR ---
CALLING FAMILY TALKED WITH HERMILA MAIN CAREGIVER, PATIENT IS CURRENTLY RECEIVING THE HOSPITAL BED AND ALL EQUIPMENT THAT'S BEEN APPROVED AND NECESSARY. SHE STATES SHE WILL BE THERE WHEN THE TRANSFER SERVICE COMES TO DROP OFF THE PATIENT. EVERYTHING IS COMPLETE ON MY END, AWAITING TRANSPORT TEAM [facility]
[2018-10-16] MEDS: PANTOPRAZOLE 40 MG/10 ML VIAL IV SCH (12:42)
[2018-10-16] MEDS: cefTRIAXone 1GM/50ML D5W 50 ML IV SCH (12:43)
[2018-10-16] MEDS: AZITHROMYCIN 500MG/ 250ML 250 ML IV SCH (12:43)
--- NOTE | 2018-10-16 14:00 | NUR ---
CLOSING Discharge instructions given as ordered. Encourage to follow up with PMD as instructed. All questions and concerns addressed. Patient verbalized understanding. Medication reconciliation form completed and copy given to patient. IV removed with catheter intact, pressure dressing applied, larson catheter in place still per MD order.Telemetry unit returned to ICU. Patient taken to vehicle via wheelchair with all personal belongings, accompanied by staff from [employer] transporting to his home. No distress noted at time of departure.
== END 2018-10-16 15:09 | disposition hospice, home (50) | DRG 871 ==
LOC: EDUNIT# 13:03 → ER 13:03 → EDBD 13:03 → TELE 18:32 → DOU IN ICU 19:56 → TELE-WESTW 10-15 09:01
PROVIDERS: ADMIT Nurse Practitioner Acute Care; ATTEND Internal Medicine
PROC: 0DJ08ZZ Inspection of Upper Intestinal Tract, Via Natural or Artificial Opening Endoscopic (ICD-10-PCS; principal; 2018-10-13 13:06)
DX: A41.9 Sepsis, unspecified organism (principal); J69.0 Pneumonitis due to inhalation of food and vomit; N17.0 Acute kidney failure with tubular necrosis; E43 Unspecified severe protein-calorie malnutrition; G93.41 Metabolic encephalopathy; N39.0 Urinary tract infection, site not specified; D62 Acute posthemorrhagic anemia; E87.0 Hyperosmolality and hypernatremia; E87.4 Mixed disorder of acid-base balance; G96.0 Cerebrospinal fluid leak; K92.2 Gastrointestinal hemorrhage, unspecified; N13.6 Pyonephrosis; R65.20 Severe sepsis without septic shock; T85.9XXA Unspecified complication of internal prosthetic device, implant and graft, initial encounter; Y84.8 Other medical procedures as the cause of abnormal reaction of the patient, or of later complication, without mention of misadventure at the time of the procedure; E11.21 Type 2 diabetes mellitus with diabetic nephropathy; K46.9 Unspecified abdominal hernia without obstruction or gangrene; E11.649 Type 2 diabetes mellitus with hypoglycemia without coma; E11.22 Type 2 diabetes mellitus with diabetic chronic kidney disease; E86.0 Dehydration; E87.6 Hypokalemia; F01.50 Vascular dementia, unspecified severity, without behavioral disturbance, psychotic disturbance, mood disturbance, and anxiety; I12.9 Hypertensive chronic kidney disease with stage 1 through stage 4 chronic kidney disease, or unspecified chronic kidney disease; I48.2 Chronic atrial fibrillation; K20.9 Esophagitis, unspecified; K76.89 Other specified diseases of liver; N40.0 Benign prostatic hyperplasia without lower urinary tract symptoms; Z79.4 Long term (current) use of insulin; Z79.899 Other long term (current) drug therapy; Z68.21 Body mass index [BMI] 21.0-21.9, adult; Z85.89 Personal history of malignant neoplasm of other organs and systems; Y92.89 Other specified places as the place of occurrence of the external cause
CPT/HCPCS: 36415; 36600; 51702; 71045; 74176; 80048; 80053; 80202; 81001; 82150; 82565; 82805; 82962; 83036; 83605; 83690; 83735; 83880; 84100; 84132; 84443; 84484; 84520; 85007; 85014; 85018; 85025; 85027; 85610; 85730; 86850; 86900; 86901; 86920; 87040; 87086; 87088; 87186; 87804; 93005; 94640; 94761; 99291; A6257; C9113; G0378; J0696; J1815; J2250; J7060